=== PATIENT | male | born 1935 | race Caucasian/White ===

== ENCOUNTER 2016-12-21 08:37 | Day surgery (SDC) | payer MEDICARE ==
[~2016-12-21] VITALS: Ht 177.8 cm; Wt 90.9 kg
[~2016-12-21 08:37] MED LIST: ALPR1TAB10 PO; CHOL2000 PO; CODE15TA PO; DULO60CA7 PO; FINA5TAB4 PO; LEVO25TA4 PO; METO25TA35 PO; POTA25TA4 PO; POTA99TA2 PO; RAMI5CAP PO; RANI-276 PO; SIMV20TA3 PO; TAMS-11 PO; TIZA4CAP PO; WARF7.5T PO; ZOLP10TA5 PO
[2016-12-21] MEDS ORDERED: LACTATED RINGERS 1,000 ML IV SCH (09:04)
[2016-12-21 09:06] VITALS: BP 142/85
[2016-12-21 09:10] VITALS: BP 142/85
[2016-12-21] MEDS ORDERED: FENTANYL PF 100 MCG/2ML ONE ×2 (09:53→11:48)
[2016-12-21] MEDS ORDERED: CEFAZOLIN 1,000 MG ONE (10:43)
[2016-12-21] MEDS ORDERED: DEXAMETHASONE 4 MG/ML, 5ML ONE (10:43)
[2016-12-21] MEDS ORDERED: ONDANSETRON 2MG/ML, 2ML ONE ×2 (10:43→13:04)
[2016-12-21] MEDS ORDERED: KETAMINE 10 MG/ML, 20ML ONE (10:59)
[2016-12-21] MEDS ORDERED: LIDOCAINE-MPF 2% ,5ML ONE (11:00)
[2016-12-21] MEDS ORDERED: PROPOFOL 10 MG/ML, 20ML ONE (11:00)
[2016-12-21] MEDS ORDERED: PROMETHAZINE 25 MG/ML, 1ML IV PRN (12:00)
[2016-12-21] MEDS ORDERED: FENTANYL PF 100 MCG/2ML IV PRN (12:00)
[2016-12-21] MEDS ORDERED: ACETAMINOPHEN 325 MG TABLET PO PRN (12:00)
[2016-12-21] MEDS ORDERED: OXYcodone 5 MG/5 ML ORAL.SOL UDC PO PRN (12:00)
[2016-12-21] MEDS ORDERED: hydrALAzine 20 MG/ML, 1ML IV PRN (12:00)
[2016-12-21] MEDS ORDERED: LABETALOL 5MG/ML, 20ML IV PRN (12:00)
[2016-12-21] MEDS ORDERED: MIDAZOLAM 1 MG/ML, 2ML IV PRN (12:00)
[2016-12-21] MEDS ORDERED: morphine SULFATE 10 MG/ML, 1ML IV PRN (12:00)
[2016-12-21] MEDS ORDERED: OXYcodone 5 MG/5 ML ORAL.SOL UDC ONE (12:51)
[2016-12-21] MEDS ORDERED: ONDANSETRON 2MG/ML, 2ML IVPush ONE (13:30)
== END 2016-12-21 17:40 | disposition home or self-care (01) ==
LOC: OUT 08:37
PROVIDERS: ATTEND Orthopaedic Surgery
DX: M20.11 Hallux valgus (acquired), right foot (principal); M20.41 Other hammer toe(s) (acquired), right foot; M77.41 Metatarsalgia, right foot; M24.574 Contracture, right foot; E03.9 Hypothyroidism, unspecified; I10 Essential (primary) hypertension; K21.9 Gastro-esophageal reflux disease without esophagitis; E78.5 Hyperlipidemia, unspecified; Z88.1 Allergy status to other antibiotic agents; Z95.1 Presence of aortocoronary bypass graft; Z88.8 Allergy status to other drugs, medicaments and biological substances
CPT/HCPCS: 20680; 28285; 28308; 28750; 36415; 73630; 76001; 85610; 85730; C1713; J0690; J1100; J2405; J2704; J3010; J3490; J7120

== ENCOUNTER 2017-01-22 10:24 | Day surgery (SDC) | payer MEDICARE ==
[~2017-01-22] VITALS: Ht 177.8 cm; Wt 105.5 kg
[2017-01-22] MEDS ORDERED: SODIUM CHLORIDE 0.9% 1,000 ML IV SCH (11:40)
[2017-01-22 11:51] VITALS: BP 143/93
[2017-01-22] MEDS ORDERED: PLEASE ENTER HEIGHT AND WEIGHT MC SCH (12:00)
[2017-01-22] MEDS ORDERED: CEFAZOLIN PMX 1GM/50ML 50 ML IVPB ONE (12:00)
[2017-01-22] MEDS ORDERED: HYDR-882 PO (12:09)
[2017-01-22] MEDS ORDERED: DIPH25CA61 PO (12:09)
[2017-01-22] MEDS ORDERED: BUSP10TA PO (12:09)
[2017-01-22 12:22] LABS: HEMATOCRIT 43.3 % (39.2-51.8); HEMOGLOBIN 14.3 g/dL (13.7-18.0); WHITE BLOOD COUNT 6.5 x10^3/uL (3.4-10)
[2017-01-22 12:30] LABS: BLOOD UREA NITROGEN 10 mg/dL (7-18)
[2017-01-22] MEDS ORDERED: FENTANYL PF 100 MCG/2ML ONE (12:39)
[2017-01-22] MEDS ORDERED: LIDOCAINE 2%, 20ML ONE (12:39)
[2017-01-22] MEDS ORDERED: CEFAZOLIN PMX 1GM/50ML 50 ML ONE (12:39)
[2017-01-22] MEDS ORDERED: CEFAZOLIN 1,000 MG ONE (12:39)
[2017-01-22] MEDS ORDERED: MIDAZOLAM 1 MG/ML, 5ML ONE (12:39)
[2017-01-22] MEDS ORDERED: CEPH-368 PO (14:09)
== END 2017-01-22 15:30 | disposition home or self-care (01) ==
LOC: CACL 10:24
PROVIDERS: ATTEND Internal Medicine Cardiovascular Disease
DX: Z45.010 Encounter for checking and testing of cardiac pacemaker pulse generator [battery] (principal); Z87.891 Personal history of nicotine dependence; Z95.0 Presence of cardiac pacemaker; I10 Essential (primary) hypertension
CPT/HCPCS: 33228; 36415; 80048; 85025; 85610; 99156; C1785; J0690; J2250; J3010; J3490

== ENCOUNTER → 2018-07-11 | Outpatient (CLI) | payer MEDICARE ==
[~2018-07-11] MED LIST changes: +BUSP10TA PO; +CEPH-368 PO; +DIPH25CA61 PO; +HYDR-3653 PO; -RAMI5CAP PO; +RAMI5CAP57 PO; -RANI-276 PO; +RANI-448 PO
== END | disposition home or self-care (01) ==
LOC: CVU 14:54
PROVIDERS: ATTEND Internal Medicine Cardiovascular Disease
DX: I08.3 Combined rheumatic disorders of mitral, aortic and tricuspid valves (principal); I77.819 Aortic ectasia, unspecified site
CPT/HCPCS: 93306

== ENCOUNTER 2018-07-23 13:07 | Outpatient (CLI) | payer MEDICARE | END 2018-07-23 23:59 | disposition home or self-care (01) | LOC: CVU 13:07 | PROVIDERS: ATTEND Internal Medicine Cardiovascular Disease | DX: I73.9 Peripheral vascular disease, unspecified (principal); I34.0 Nonrheumatic mitral (valve) insufficiency; R06.02 Shortness of breath | CPT/HCPCS: 93922 ==

== ENCOUNTER → 2018-07-29 | Outpatient (CLI) | payer MEDICARE ==
[~2018-07-29] MED LIST changes: +REGADENOSON 0.4 MG/5 ML SYRINGE ONE
== END | disposition home or self-care (01) ==
LOC: CFH 07:40
PROVIDERS: ATTEND Internal Medicine Cardiovascular Disease
DX: I34.0 Nonrheumatic mitral (valve) insufficiency (principal); I25.10 Atherosclerotic heart disease of native coronary artery without angina pectoris; R94.31 Abnormal electrocardiogram [ECG] [EKG]; I73.9 Peripheral vascular disease, unspecified; R06.02 Shortness of breath; I25.5 Ischemic cardiomyopathy; I44.7 Left bundle-branch block, unspecified; Z95.1 Presence of aortocoronary bypass graft
CPT/HCPCS: 78452; 93017; A9502; J2785

== ENCOUNTER → 2018-12-29 | Outpatient (CLI) | payer MEDICARE ==
[~2018-12-29] MED LIST changes: -REGADENOSON 0.4 MG/5 ML SYRINGE ONE
[2018-12-29 07:24] LABS: BASOPHILS # (AUTO) 0.03 x10^3/uL (0-0.1); BASOPHILS % (AUTO) 0 % (0-1); EOSINOPHILS # (AUTO) 0.16 x10^3/uL (0-0.4); EOSINOPHILS % (AUTO) 2 % (1-7); LYMPHOCYTES # (AUTO) 2.26 x10^3/uL (1-3.4); LYMPHOCYTES % (AUTO) 26 % (22-44); MD NO; MEAN CORPUSCULAR HEMOGLOBIN 32.3 pg (27.5-34.5); MEAN CORPUSCULAR HGB CONC 33.4 g/dL (33.2-36.2); MEAN CORPUSCULAR VOLUME 96.9 fL (81-97); MEAN PLATELET VOLUME 8.2 fL (7.4-10.4); MONOCYTES # (AUTO) 0.87 x10^3/uL (0.2-0.8); MONOCYTES % (AUTO) 10 % (2-9); NEUTROPHILS % (AUTO) 62 % (42-75); PLATELET COUNT 210 x10^3/uL (130-400); RED BLOOD COUNT 4.64 x10^6/uL (4.38-5.82); RED CELL DISTRIBUTION WIDTH 14.9 % (9.4-14.8)
[2018-12-29 07:38] LABS: ANION GAP 4 mmol/L (5-15); CALCIUM 9.1 mg/dL (8.5-10.1); CHLORIDE 104 mmol/L (98-107); CREATININE 0.93 mg/dL (0.7-1.3)
== END | disposition home or self-care (01) ==
LOC: LAB 07:09
PROVIDERS: ATTEND Internal Medicine Cardiovascular Disease
DX: D64.9 Anemia, unspecified (principal); R60.9 Edema, unspecified; I10 Essential (primary) hypertension; I73.9 Peripheral vascular disease, unspecified; R53.82 Chronic fatigue, unspecified
CPT/HCPCS: 36415; 80048; 85025

== ENCOUNTER → 2019-09-07 | Outpatient (CLI) | payer MEDICARE ==
[~2019-09-07] MED LIST changes: -RANI-448 PO; +RANI-460 PO; +SIMV20TA19 PO; -SIMV20TA3 PO
[2019-09-07 13:30] LABS: ALBUMIN 4.1 g/dL (3.4-5.0); BILIRUBIN, DIRECT 0.2 mg/dL (0.1-0.2); BILIRUBIN,INDIRECT 0.4 mg/dL (0.0-2.0); BILIRUBIN,TOTAL 0.6 mg/dL (0.2-1.0); TOTAL PROTEIN 7.9 g/dL (6.4-8.2)
== END | disposition home or self-care (01) ==
LOC: CFH 09:35
PROVIDERS: ATTEND Family Medicine
DX: I10 Essential (primary) hypertension (principal); Z95.1 Presence of aortocoronary bypass graft
CPT/HCPCS: 36415; 80076

== ENCOUNTER → 2019-12-04 | Outpatient (CLI) | payer MEDICARE ==
[2019-12-04 11:00] LABS: BASOPHILS # (AUTO) 0.04 x10^3/uL (0-0.1); BASOPHILS % (AUTO) 0 % (0-1); EOSINOPHILS # (AUTO) 0.14 x10^3/uL (0-0.4); EOSINOPHILS % (AUTO) 1 % (1-7); LYMPHOCYTES # (AUTO) 2.34 x10^3/uL (1-3.4); LYMPHOCYTES % (AUTO) 20 % (22-44); MD NO; MEAN CORPUSCULAR HEMOGLOBIN 34.4 pg (27.5-34.5); MEAN PLATELET VOLUME 8.4 fL (7.4-10.4); MONOCYTES # (AUTO) 1.11 x10^3/uL (0.2-0.8); MONOCYTES % (AUTO) 10 % (2-9); NEUTROPHILS # (AUTO) 7.95 x10^3/uL (1.8-6.8); NEUTROPHILS % (AUTO) 69 % (42-75); PLATELET COUNT 248 x10^3/uL (130-400); RED BLOOD COUNT 4.36 x10^6/uL (4.38-5.82); RED CELL DISTRIBUTION WIDTH 13.7 % (9.4-14.8)
[2019-12-04 11:12] LABS: ALANINE AMINOTRANSFERASE 35 U/L (12-78); ALBUMIN 4.2 g/dL (3.4-5.0); ANION GAP 6 mmol/L (5-15); CHLORIDE 106 mmol/L (98-107); CHOLESTEROL, TOTAL 139 mg/dL (140-239); CREATININE 1.07 mg/dL (0.7-1.3)
[2019-12-04 11:13] LABS: INTERNATIONAL NORMALIZED RATIO 2.3 (0.93-1.1); PROTHROMBIN TIME 23.9 Seconds (9.6-11.5)
[2019-12-04 11:21] LABS: ALKALINE PHOSPHATASE 51 U/L (45-117); BILIRUBIN,TOTAL 0.5 mg/dL (0.2-1.0); CHOL/HDL RATIO 2.1; FREE T4 (FREE THYROXINE) 1.21 ng/dL (0.76-1.46); HDL CHOL % 47 % (26-37); HDL CHOLESTEROL (DIRECT) 66 mg/dL (40-60); LDL CHOLESTEROL,CALCULATED 58 mg/dL (54-169); LDL/HDL RATIO 0.9 (0.5-3.0); TRIGLYCERIDES 74 mg/dL (50-200); VLDL CHOLESTEROL 15 mg/dL (0-25)
== END | disposition home or self-care (01) ==
LOC: LAB 10:42
PROVIDERS: ATTEND Family Medicine
DX: I48.0 Paroxysmal atrial fibrillation (principal); E03.9 Hypothyroidism, unspecified; Z95.1 Presence of aortocoronary bypass graft
CPT/HCPCS: 36415; 80053; 80061; 84439; 84443; 85025; 85610

== ENCOUNTER → 2020-01-14 | Outpatient (CLI) | payer MEDICARE ==
[2020-01-14 08:02] LABS: MEAN CORPUSCULAR HEMOGLOBIN 34.4 pg (27.5-34.5); MEAN CORPUSCULAR HGB CONC 33.2 g/dL (33.2-36.2); MEAN PLATELET VOLUME 8.6 fL (7.4-10.4); PLATELET COUNT 204 x10^3/uL (130-400); RED CELL DISTRIBUTION WIDTH 13.4 % (9.4-14.8)
[2020-01-14 08:07] LABS: ALANINE AMINOTRANSFERASE 21 U/L (12-78); ALBUMIN 4.1 g/dL (3.4-5.0); ANION GAP 3 mmol/L (5-15); CALCIUM 9.3 mg/dL (8.5-10.1); CHLORIDE 105 mmol/L (98-107); CHOLESTEROL, TOTAL 136 mg/dL (140-239); CREATININE 1.01 mg/dL (0.7-1.3); TRIGLYCERIDES 121 mg/dL (50-200); VLDL CHOLESTEROL 24 mg/dL (0-25)
[2020-01-14 08:10] LABS: ALKALINE PHOSPHATASE 56 U/L (45-117); BILIRUBIN,TOTAL 0.9 mg/dL (0.2-1.0); CHOL/HDL RATIO 2.7; HDL CHOL % 38 % (26-37); HDL CHOLESTEROL (DIRECT) 51 mg/dL (40-60); LDL CHOLESTEROL,CALCULATED 61 mg/dL (54-169); LDL/HDL RATIO 1.2 (0.5-3.0); TOTAL PROTEIN 7.6 g/dL (6.4-8.2)
== END | disposition home or self-care (01) ==
LOC: LAB 07:42
PROVIDERS: ATTEND Internal Medicine Cardiovascular Disease
DX: I10 Essential (primary) hypertension (principal); E78.5 Hyperlipidemia, unspecified; I48.20 Chronic atrial fibrillation, unspecified
CPT/HCPCS: 36415; 80053; 80061; 85027

== ENCOUNTER → 2020-04-20 | Outpatient (CLI) | payer MEDICARE ==
[~2020-04-20] MED LIST changes: +FURO-93 PO; +NA P1TAB PO; +POTA10TA PO; +SOTA80TA18 PO; +SPIR25TA5 PO
== END | disposition home or self-care (01) ==
LOC: CVU 12:41
PROVIDERS: ATTEND Internal Medicine Cardiovascular Disease
DX: I11.9 Hypertensive heart disease without heart failure (principal)
CPT/HCPCS: 93306

== ENCOUNTER 2020-04-21 09:17 | Observation (INO) | payer MEDICARE ==
[~2020-04-21] VITALS: Ht 180.3 cm; Wt 109.5 kg
[~2020-04-21 09:17] MED LIST changes: -FURO-93 PO; -NA P1TAB PO; -POTA10TA PO; -SPIR25TA5 PO
[2020-04-21] MEDS ORDERED: NA P1TAB PO (09:46)
[2020-04-21] MEDS ORDERED: POTA10TA PO (09:46)
[2020-04-21] MEDS ORDERED: FURO-93 PO (09:46)
[2020-04-21] MEDS ORDERED: SPIR25TA5 PO (09:46)
[2020-04-21] MEDS ORDERED: SODIUM CHLORIDE 0.9% 1,000 ML IV SCH (10:00)
[2020-04-21] MEDS ORDERED: PLEASE ENTER HEIGHT AND WEIGHT MC SCH (10:00)
[2020-04-21 10:15] LABS: BASOPHILS % (AUTO) 1 % (0-1); EOSINOPHILS % (AUTO) 2 % (1-7); LYMPHOCYTES % (AUTO) 20 % (22-44); MEAN CORPUSCULAR HEMOGLOBIN 34.8 pg (27.5-34.5); MEAN CORPUSCULAR HGB CONC 34.1 g/dL (33.2-36.2); MEAN PLATELET VOLUME 8.2 fL (7.4-10.4); MONOCYTES % (AUTO) 10 % (2-9); NEUTROPHILS % (AUTO) 68 % (42-75); PLATELET COUNT 197 x10^3/uL (130-400); RED BLOOD COUNT 3.65 x10^6/uL (4.38-5.82); RED CELL DISTRIBUTION WIDTH 13.4 % (9.4-14.8)
[2020-04-21 10:16] LABS: MD NO
[2020-04-21 10:25] LABS: INTERNATIONAL NORMALIZED RATIO 1.22 (0.93-1.1)
[2020-04-21 10:27] LABS: ANION GAP 6 mmol/L (5-15); CALCIUM 9.2 mg/dL (8.5-10.1); CHLORIDE 110 mmol/L (98-107); CREATININE 1.01 mg/dL (0.7-1.3)
[2020-04-21] MEDS ORDERED: VERAPAMIL 2.5 MG/ML, 2ML ONE (12:41)
[2020-04-21] MEDS ORDERED: HEPARIN 1,000 UNITS/ML, 10ML ONE (12:41)
[2020-04-21] MEDS ORDERED: MIDAZOLAM 1 MG/ML, 5ML ONE (12:41)
[2020-04-21] MEDS ORDERED: FENTANYL PF 100 MCG/2ML ONE (12:41)
[2020-04-21] MEDS ORDERED: BIVALIRUDIN 250 MG ONE (12:41)
[2020-04-21] MEDS ORDERED: LIDOCAINE-MPF 1%, 5ML ONE (12:41)
[2020-04-21] MEDS ORDERED: HYDROcodone/APAP 10/325 MG TABLET ONE (14:44)
[2020-04-21 16:52] VITALS: BP 136/83
[2020-04-21] MEDS: TIZANIDINE 4MG TABLET PO PRN (17:02)
[2020-04-21] MEDS ORDERED: WARFARIN 7.5 MG TABLET PO-COUM SCH (18:00)
[2020-04-21] MEDS: SOTALOL 80MG TABLET PO SCH (18:03)
[2020-04-21 19:51] VITALS: BP 120/71
[2020-04-21] MEDS: SPIRONOLACTONE 25 MG TABLET PO SCH (20:11)
[2020-04-21] MEDS: FUROSEMIDE 20 MG TABLET PO SCH (20:11)
[2020-04-22 00:58] VITALS: BP 111/64
[2020-04-22] MEDS: SOTALOL 80MG TABLET PO SCH (05:47)
[2020-04-22] MEDS ORDERED: LEVOTHYROXINE 88 MCG TABLET PO SCH (06:00)
[2020-04-22 07:36] VITALS: BP 134/79
[2020-04-22] MEDS: TIZANIDINE 4MG TABLET PO PRN (07:38)
[2020-04-22] MEDS: FUROSEMIDE 20 MG TABLET PO SCH (08:33)
[2020-04-22] MEDS: SPIRONOLACTONE 25 MG TABLET PO SCH (08:33)
[2020-04-22] MEDS ORDERED: RAMIPRIL 5 MG CAP PO SCH (09:00)
[2020-04-22] MEDS ORDERED: POTASSIUM CHLORIDE 10 MEQ TABLET.ER PO SCH (09:00)
[2020-04-22] MEDS ORDERED: SIMVASTATIN 20 MG TABLET PO SCH (09:00)
[2020-04-22] MEDS ORDERED: CHOLECALCIFEROL 5,000u TAB PO SCH (09:00)
[2020-04-22] MEDS ORDERED: DULOXETINE 30 MG CAPSULE.DR PO SCH (09:00)
== END 2020-04-22 09:43 | disposition home or self-care (01) ==
LOC: CACL 09:17 → 5SO 09:18 → CACL 20:09 → DCLOUNGE 04-22 09:36
PROVIDERS: ADMIT Internal Medicine Cardiovascular Disease; ATTEND Internal Medicine Cardiovascular Disease
DX: I48.20 Chronic atrial fibrillation, unspecified (principal); I25.10 Atherosclerotic heart disease of native coronary artery without angina pectoris; I25.9 Chronic ischemic heart disease, unspecified; E11.9 Type 2 diabetes mellitus without complications; I34.0 Nonrheumatic mitral (valve) insufficiency; I73.9 Peripheral vascular disease, unspecified; R06.02 Shortness of breath; R53.82 Chronic fatigue, unspecified; I10 Essential (primary) hypertension; I49.5 Sick sinus syndrome; R60.9 Edema, unspecified; E78.5 Hyperlipidemia, unspecified; Z95.0 Presence of cardiac pacemaker; Z95.1 Presence of aortocoronary bypass graft; Z87.891 Personal history of nicotine dependence; Z79.899 Other long term (current) drug therapy
CPT/HCPCS: 36415; 80048; 85025; 85610; 93458; 99156; 99157; C1760; C1769; C1894; G0378; J2250; J3010; Q9967; J0583; J1644

== ENCOUNTER 2020-06-15 05:46 | Observation (INO) | payer MEDICARE ==
[~2020-06-15] VITALS: Ht 180.3 cm; Wt 109.1 kg
[~2020-06-15 05:46] MED LIST changes: +FURO-93 PO; +NA P1TAB PO; +POTA10TA PO; +SPIR25TA5 PO
[2020-06-15] MEDS: SODIUM CHLORIDE 0.9% 1,000 ML IV SCH ×3 (06:30→21:37)
[2020-06-15] MEDS ORDERED: LIDOCAINE 1%, 20ML ONE (06:36)
[2020-06-15] MEDS ORDERED: CEFAZOLIN 1,000 MG ONE (06:36)
[2020-06-15 06:38] VITALS: BP 131/73
[2020-06-15] MEDS ORDERED: SOTA80TA18 PO (06:55)
[2020-06-15] MEDS ORDERED: FAMO20TA7 PO (06:55)
[2020-06-15] MEDS ORDERED: TIZA4CAP2 PO (06:55)
[2020-06-15] MEDS ORDERED: SIME62.5 PO (06:55)
[2020-06-15 07:16] LABS: BASOPHILS % (AUTO) 1 % (0-1); EOSINOPHILS % (AUTO) 0 % (1-7); LYMPHOCYTES % (AUTO) 13 % (22-44); MEAN CORPUSCULAR HEMOGLOBIN 35.1 pg (27.5-34.5); MEAN CORPUSCULAR HGB CONC 33.9 g/dL (33.2-36.2); MEAN PLATELET VOLUME 8.5 fL (7.4-10.4); MONOCYTES % (AUTO) 8 % (2-9); NEUTROPHILS % (AUTO) 79 % (42-75); PLATELET COUNT 217 x10^3/uL (130-400); RED BLOOD COUNT 3.38 x10^6/uL (4.38-5.82); RED CELL DISTRIBUTION WIDTH 13.1 % (9.4-14.8)
[2020-06-15 07:24] LABS: MD NO
[2020-06-15 07:27] LABS: ANION GAP 3 mmol/L (5-15); CALCIUM 9.2 mg/dL (8.5-10.1); CHLORIDE 105 mmol/L (98-107); CREATININE 1.01 mg/dL (0.7-1.3)
[2020-06-15] MEDS ORDERED: FENTANYL PF 250 MCG/5ML ONE (07:28)
[2020-06-15] MEDS ORDERED: PROPOFOL 50 ML ONE ×2 (07:28→08:43)
[2020-06-15 07:35] LABS: INTERNATIONAL NORMALIZED RATIO 2.1 (0.93-1.1); PROTHROMBIN TIME 22.1 Seconds (9.6-11.5)
[2020-06-15] MEDS ORDERED: ONDANSETRON 2MG/ML, 2ML ONE ×2 (08:43→10:22)
[2020-06-15] MEDS ORDERED: SUCCINYLCHOLINE 20 MG/ML, 10ML ONE (08:43)
[2020-06-15] MEDS ORDERED: PROPOFOL 10 MG/ML, 20ML ONE (08:43)
[2020-06-15] MEDS ORDERED: WARFARIN 7.5 MG TABLET PO-COUM SCH (09:02)
[2020-06-15] MEDS ORDERED: PROMETHAZINE 25 MG/ML, 1ML IVPush PRN (09:30)
[2020-06-15] MEDS ORDERED: EPHEDRINE 50 MG/ML, 1ML IVPush PRN (09:30)
[2020-06-15] MEDS ORDERED: FENTANYL PF 100 MCG/2ML IV PRN (09:30)
[2020-06-15] MEDS ORDERED: DIPHENHYDRAMINE 50 MG/ML, 1ML IVPush PRN (09:30)
[2020-06-15] MEDS ORDERED: HOLD MEDICATION MC PRN (09:30)
[2020-06-15] MEDS ORDERED: ACETAMINOPHEN 325 MG TABLET PO PRN (09:30)
[2020-06-15] MEDS ORDERED: ONDANSETRON 2MG/ML, 2ML IVPush PRN ×2 (09:30→10:30)
[2020-06-15] MEDS ORDERED: EPHEDRINE 50 MG/ML, 1ML IM PRN (09:30)
[2020-06-15] MEDS ORDERED: morphine SULFATE 10 MG/ML, 1ML IVPush PRN (09:30)
[2020-06-15] MEDS ORDERED: MEPERIDINE/PF 25MG/0.5ML IVPush PRN (09:30)
[2020-06-15] MEDS ORDERED: DIAZEPAM 5 MG/ML, 2ML IVPush PRN (09:30)
[2020-06-15] MEDS ORDERED: OXYcodone 5 MG/5 ML ORAL.SOL UDC PO PRN (09:30)
[2020-06-15 10:03] VITALS: BP 134/66
[2020-06-15] MEDS ORDERED: DOCUSATE 100 MG CAPSULE PO PRN (10:30)
[2020-06-15] MEDS ORDERED: [UNRECOGNIZED DRUG - OTHER] MC SCH (10:30)
[2020-06-15 14:23] VITALS: BP 138/81
[2020-06-15] MEDS ORDERED: DIPH25CA61 PO (15:10)
[2020-06-15] MEDS: CEFAZOLIN PMX 1GM/50ML 50 ML IVPB SCH ×2 (15:38→22:34)
[2020-06-15] MEDS ORDERED: WARFARIN 5 MG TABLET PO-COUM ONE ×2 (16:56→18:00)
[2020-06-15] MEDS ORDERED: SIMETHICONE 125 MG CHEW TAB PO PRN (17:00)
[2020-06-15] MEDS: TIZANIDINE 4MG TABLET PO PRN ×2 (17:12→22:30)
[2020-06-15 19:21] VITALS: BP 141/80
[2020-06-15] MEDS: FUROSEMIDE 20 MG TABLET PO SCH (20:28)
[2020-06-15] MEDS: SOTALOL 80MG TABLET PO SCH (20:28)
[2020-06-15] MEDS: SPIRONOLACTONE 25 MG TABLET PO SCH (20:28)
[2020-06-15] MEDS: SODIUM CHLORIDE FLUSH 10ML SYR IVF SCH (20:29)
[2020-06-16 01:15] VITALS: BP 136/83
[2020-06-16] MEDS: TIZANIDINE 4MG TABLET PO PRN (04:21)
[2020-06-16] MEDS: SODIUM CHLORIDE 0.9% 1,000 ML IV SCH (05:32)
[2020-06-16] MEDS ORDERED: LEVOTHYROXINE 88 MCG TABLET PO SCH (06:30)
[2020-06-16 07:55] VITALS: BP 143/81
[2020-06-16] MEDS: FUROSEMIDE 20 MG TABLET PO SCH (08:25)
[2020-06-16] MEDS: SOTALOL 80MG TABLET PO SCH (08:25)
[2020-06-16] MEDS: SPIRONOLACTONE 25 MG TABLET PO SCH (08:25)
[2020-06-16] MEDS: SODIUM CHLORIDE FLUSH 10ML SYR IVF SCH (08:26)
[2020-06-16] MEDS ORDERED: ACET325T26 PO (08:48)
[2020-06-16] MEDS ORDERED: POTASSIUM CHLORIDE 10 MEQ TABLET.ER PO SCH (09:00)
[2020-06-16] MEDS ORDERED: RAMIPRIL 5 MG CAP PO SCH (09:00)
[2020-06-16] MEDS ORDERED: FAMOTIDINE 20 MG TABLET PO SCH (09:00)
[2020-06-16] MEDS ORDERED: SIMVASTATIN 20 MG TABLET PO SCH (09:00)
[2020-06-16 09:53] LABS: INTERNATIONAL NORMALIZED RATIO 3.13 (0.93-1.1); PROTHROMBIN TIME 32.8 Seconds (9.6-11.5)
== END 2020-06-16 10:25 | disposition home or self-care (01) ==
LOC: CACL 05:46 → 5SO 09:02 → CACL 13:04 → DCLOUNGE 06-16 10:12
PROVIDERS: ADMIT Internal Medicine Cardiovascular Disease; ATTEND Internal Medicine Cardiovascular Disease
DX: I11.0 Hypertensive heart disease with heart failure (principal); I50.9 Heart failure, unspecified; Z20.822 Contact with and (suspected) exposure to COVID-19; I44.7 Left bundle-branch block, unspecified; I48.19 Other persistent atrial fibrillation; I25.5 Ischemic cardiomyopathy; I25.10 Atherosclerotic heart disease of native coronary artery without angina pectoris; I35.0 Nonrheumatic aortic (valve) stenosis; Q24.6 Congenital heart block; E03.9 Hypothyroidism, unspecified; E78.5 Hyperlipidemia, unspecified; F10.10 Alcohol abuse, uncomplicated; Z45.02 Encounter for adjustment and management of automatic implantable cardiac defibrillator; Z95.1 Presence of aortocoronary bypass graft; Z87.891 Personal history of nicotine dependence; Z79.899 Other long term (current) drug therapy; Z95.4 Presence of other heart-valve replacement
CPT/HCPCS: 33225; 33229; 36415; 71045; 71046; 80048; 85025; 85610; 87635; 96365; 96366; 96375; C1769; C1887; C1900; C2621; G0378; J0330; J0690; J2405; J2704; J3010; J3490; Q9967

== ENCOUNTER 2020-07-22 07:09 | Outpatient (CLI) | payer MEDICARE ==
[~2020-07-22 07:09] MED LIST changes: +ACET325T26 PO; +FAMO20TA7 PO; +SIME62.5 PO; +TIZA4CAP2 PO
[2020-07-22 07:35] LABS: HCT (SEDRATE) 38.6 % (39.2-51.8)
[2020-07-22 07:46] LABS: ANION GAP 4 mmol/L (5-15); CALCIUM 9.2 mg/dL (8.5-10.1); CHLORIDE 107 mmol/L (98-107)
[2020-07-22 08:11] LABS: ALANINE AMINOTRANSFERASE 25 U/L (12-78); ALKALINE PHOSPHATASE 47 U/L (45-117); BILIRUBIN,TOTAL 0.6 mg/dL (0.2-1.0); C-REACTIVE PROTEIN, QUANT 0.09 mg/dL (0.02-0.49); CHOL/HDL RATIO 2.5; CHOLESTEROL, TOTAL 135 mg/dL (140-239); CREATININE 1.01 mg/dL (0.7-1.3); HDL CHOL % 40 % (26-37); HDL CHOLESTEROL (DIRECT) 54 mg/dL (40-60); LDL CHOLESTEROL,CALCULATED 65 mg/dL (54-169); LDL/HDL RATIO 1.2 (0.5-3.0); TOTAL PROTEIN 7.6 g/dL (6.4-8.2); TRIGLYCERIDES 81 mg/dL (50-200); VLDL CHOLESTEROL 16 mg/dL (0-25)
[2020-07-22 08:18] LABS: FOLATE LEVEL > 20.0 ng/mL (3.1-17.5)
== END 2020-07-22 23:59 | disposition home or self-care (01) ==
LOC: LAB 07:09
PROVIDERS: ATTEND Nurse Practitioner Family
DX: I48.20 Chronic atrial fibrillation, unspecified (principal); D53.9 Nutritional anemia, unspecified; E87.1 Hypo-osmolality and hyponatremia; M25.50 Pain in unspecified joint; E03.9 Hypothyroidism, unspecified; E55.9 Vitamin D deficiency, unspecified; R14.0 Abdominal distension (gaseous); I50.9 Heart failure, unspecified
CPT/HCPCS: 36415; 80053; 80061; 82306; 82607; 82728; 82746; 83880; 84443; 85651; 86140

== ENCOUNTER → 2020-09-08 | Outpatient (CLI) | payer MEDICARE | END | disposition home or self-care (01) | LOC: CVU 13:06 | PROVIDERS: ATTEND Nurse Practitioner Family | DX: I08.3 Combined rheumatic disorders of mitral, aortic and tricuspid valves (principal); I48.20 Chronic atrial fibrillation, unspecified | CPT/HCPCS: 93306 ==

== ENCOUNTER → 2020-09-25 | Outpatient (CLI) | payer MEDICARE ==
[2020-09-25 09:30] LABS: CALCIUM 9.5 mg/dL (8.5-10.1); CREATININE 0.91 mg/dL (0.7-1.3)
[2020-09-25 09:40] LABS: ANION GAP 4 mmol/L (5-15); CHLORIDE 104 mmol/L (98-107)
== END | disposition home or self-care (01) ==
LOC: LAB 08:47
PROVIDERS: ATTEND Internal Medicine
DX: I10 Essential (primary) hypertension (principal); E03.9 Hypothyroidism, unspecified; E66.9 Obesity, unspecified; E78.5 Hyperlipidemia, unspecified; G47.30 Sleep apnea, unspecified; I34.0 Nonrheumatic mitral (valve) insufficiency; I34.8 Other nonrheumatic mitral valve disorders; I44.7 Left bundle-branch block, unspecified; I47.2 Ventricular tachycardia; I48.20 Chronic atrial fibrillation, unspecified
CPT/HCPCS: 36415; 80048; 83880